=== PATIENT | male | born 1960 | race Caucasian/White ===

== ENCOUNTER 2019-07-10 21:52 | Emergency (ER) | payer BC ==
[2019-07-10] MEDS ORDERED: Cephalexin 500 MG Cap PO ONE (21:53)
[2019-07-10] MEDS ORDERED: Lidocaine 2% 20 ML MDV ONE (22:01)
[2019-07-10] MEDS ORDERED: Lidocaine 2% 20 ML MDV INJECT ONE (22:10)
[2019-07-10] MEDS ORDERED: Bacitracin/Neomycin/Polymyxin B Oint 0.9 GM U/D Packet TOP ONE (22:29)
--- NOTE | 2019-07-10 22:35 | EDM.PDOC ---
ED HPI GENERAL MEDICAL PROBLEM - General Chief Complaint: Laceration Stated Complaint: "He seems so out of it" Time Seen by Provider: 07/10/19 21:55 Source of Information: Reports: Patient, Family History Limitations: Reports: No Limitations - History of Present Illness INITIAL COMMENTS - FREE TEXT/NARRATIVE: in with c/o 3cm laceration to right hand distal end of the 2nd digit, caught in a door, bleeding is controlled, FROM to the digit with normal sensation, cap refill < 2sec, pt has been drinking a lot of alcohol tonight Onset: Today Duration: Hour(s): (1600) Location: Reports: Upper Extremity, Right Quality: Reports: Ache Severity: Mild Improves with: Reports: None Worsens with: Reports: None Context: Reports: Trauma Associated Symptoms: Reports: No Other Symptoms Treatments [employer]: Reports: Other (see below) (none) - Related Data Allergies Allergy/AdvReac Type Severity Reaction Status Date / Time No Known Allergies Allergy Verified 10/08/15 13:46 Home Meds: Home Meds Buprenorphine [Subutex] 8 mg SL DAILY 10/08/15 [History] cephALEXin [Keflex] 500 mg PO Q8H 10 Days #30 cap 07/10/19 [Rx] Past Medical History Musculoskeletal History: Reports: Fracture Other Musculoskeletal History: Right knee replacement and left hip replacement in 2019 Hematologic History: Reports: Blood Transfusion(s) - Past Surgical History HEENT Surgical History: Reports: Tonsillectomy Musculoskeletal Surgical History: Reports: ORIF Social & Family History - Tobacco Use Years of Tobacco use: 30 - Recreational Drug Use Recreational Drug Use: No ED ROS GENERAL - Review of Systems Review Of Systems: See Below Constitutional: Reports: No Symptoms Respiratory: Reports: No Symptoms Cardiovascular: Reports: No Symptoms GI/Abdominal: Reports: No Symptoms Musculoskeletal: Reports: Other (pain to distal right hand 2nd digit). Denies: Neck Pain, Shoulder Pain, Joint Swelling Skin: Reports: Wound (3cm laceration) Neurological: Reports: No Symptoms. Denies: Numbness, Tingling, Weakness Psychiatric: Reports: No Symptoms ED EXAM, SKIN/RASH Exam: See Below Exam Limited By: No Limitations General Appearance: Alert, No Apparent Distress Throat/Mouth: Normal Inspection, Normal Voice, No Airway Compromise Head: Atraumatic, Normocephalic Neck: Normal Inspection, Supple, Non-Tender, Full Range of Motion Respiratory/Chest: No Respiratory Distress, Lungs Clear, Normal Breath Sounds Cardiovascular: Normal Peripheral Pulses, Regular Rate, Rhythm, No Murmur Peripheral Pulses: 2+: Radial (R) Back Exam: Normal Inspection, Full Range of Motion Extremities: Normal Range of Motion, Normal Capillary Refill, Other (laceration as above) Neurological: Alert, Oriented, Normal Cognition, Normal Gait, No Motor/Sensory Deficits Psychiatric: Normal Affect, Normal Mood Skin: Warm, Dry, Normal Color. No: Intact Location, Skin: Upper Extremity, Right (as above) Associated features: Tenderness. No: Swelling ED SKIN PROCEDURES - Laceration/Wound Repair Right Upper Anterior Midline Distal Digit - 2nd (Index) Appearance: Linear, Clean Distal NVT: Neuro & Vascular Intact, No Tendon Injury Anesthetic Type: Local Local Anesthesia - Lidocaine (Xylocaine): 2% Plain Local Anesthetic Volume: 4cc Skin Prep: Saline (and wound fur dry cleaner) Exploration/Debridement/Repair: Wound Explored, In a Bloodless Field, No Foreign Material Found Closed with: Sutures Lac/Wound length In cm: 3 Suture Size: 5-0 # of Sutures: 7 Suture Type: Nylon Sterile Dressing Applied: Provider Tetanus Status Addressed: Yes (is UTD) Complications: No Progress/Comments: wound then cleaned with NS and a bacitracin oint dressing applied Course - Orders/Labs/Meds Orders: Active Orders 24 hr Category Date Time Status Bacitracin/Neomycin/Polymyxin [Triple Antibiotic Oint] Med 07/10/19 22:29 Once 1 each TOP ONETIME ONE Medication Orders Neomycin/Polymyxin/Bacitracin (Triple Antibiotic Oint) 1 each TOP ONETIME ONE Stop: 07/10/19 22:30 Meds: Medications Generic Name Dose Route Start Last Admin Trade Name Freq PRN Reason Stop Dose Admin Neomycin/Polymyxin/Bacitracin 1 each 07/10/19 22:29 Triple Antibiotic Oint TOP 07/10/19 22:30 ONETIME ONE Discontinued Medications Generic Name Dose Route Start Last Admin Trade Name Freq PRN Reason Stop Dose Admin Lidocaine HCl 20 ml 07/10/19 22:10 Xylocaine 2% INJECT 07/10/19 22:11 ONETIME ONE Lidocaine HCl Confirm 07/10/19 22:01 Xylocaine 2% Administered 07/10/19 22:02 Dose 20 ml .ROUTE .STK-MED ONE Departure - Departure Time of Disposition: 22:36 Disposition: Home, Self-Care 01 Condition: Good Clinical Impression: Laceration of right index finger w/o foreign body w/o damage to nail - Discharge Information *PRESCRIPTION DRUG MONITORING PROGRAM REVIEWED*: Not Applicable *COPY OF PRESCRIPTION DRUG MONITORING REPORT IN PATIENT JOHN: Not Applicable Prescriptions: cephALEXin [Keflex] 500 mg PO Q8H 10 Days #30 cap Instructions: Laceration Care, Adult, Sutured Wound Care Additional Instructions: recheck wound this week keep the wound clean and dry apply a thin coat of antibiotic ointment 3 x a day leave open to air (uncovered) as much as possible keflex 500mg 3 x a day for 10 days - Problem List & Annotations (1) Laceration of right index finger w/o foreign body w/o damage to nail SNOMED Code(s): 235778545 Code(s): S61.210A - LACERATION W/O FB OF R IDX FNGR W/O DAMAGE TO NAIL, INIT Status: Acute Priority: Medium Qualifiers: Encounter type: initial encounter Qualified Code(s): S61.210A - Laceration without foreign body of right index finger without damage to nail, initial encounter - Problem List Review Problem List Initiated/Reviewed/Updated: Yes - My Orders Last 24 Hours: My Active Orders 07/10/19 22:29 Bacitracin/Neomycin/Polymyxin [Triple Antibiotic Oint] 1 each TOP ONETIME ONE - Assessment/Plan Last 24 Hours: My Active Orders 07/10/19 22:29 Bacitracin/Neomycin/Polymyxin [Triple Antibiotic Oint] 1 each TOP ONETIME ONE Plan: as above
[2019-07-10] MEDS ORDERED: Take Home: Cephalexin 500 MG Cap, 4 Cap Pack PO ONE (22:39)
[2019-07-10 23:28] VITALS: BP 139/83; PULSE 120
== END 2019-07-10 22:50 | disposition home or self-care (01) ==
LOC: CC.ED 21:52
DX: S61.210A Laceration without foreign body of right index finger without damage to nail, initial encounter (principal); W23.0XXA Caught, crushed, jammed, or pinched between moving objects, initial encounter
CPT/HCPCS: 12002; 99282-25; A9270-GY; J2001

== ENCOUNTER 2024-07-27 17:57 | Emergency (ER) | payer BC ==
[2024-07-27 18:04] VITALS: BP 156/84; PULSE 81
[2024-07-27] MEDS: Ondansetron 4 MG/2 ML SDV IVPUSH PRN ×2 (18:32→19:26)
[2024-07-27] MEDS: Sodium Chloride 0.9% 1,000 ML IV ONE (18:33)
[2024-07-27 18:38] LABS: BASOPHILS ABSOLUTE AUTO 0.04 10^3/uL (0.00-0.50); BASOPHILS PERCENT AUTO 0.4 % (0-1); EOSINOPHILS ABSOLUTE AUTO 0.07 10^3/uL (0.00-1.50); EOSINOPHILS PERCENT AUTO 0.7 % (0-6); HEMATOCRIT 45.9 % (42.0-52.0); HEMOGLOBIN 15.6 g/dL (14.0-18.0); IMMATURE GRAN ABSOLUTE AUTO 0.02 10^3/uL (0.00-0.49); IMMATURE GRAN PERCENT AUTO 0.2 % (0.0-4.9); LYMPHOCYTES ABSOLUTE AUTO 2.04 10^3/uL (0.60-5.00); LYMPHOCYTES PERCENT AUTO 19.2 % (24-44); MEAN CORPUSCULAR HEMOGLOBIN 29.7 pg (27.0-32.0); MEAN CORPUSCULAR VOLUME 87.4 fL (83.0-97.0); MONOCYTES ABSOLUTE AUTO 0.41 10^3/uL (0.00-1.50); MONOCYTES PERCENT AUTO 3.8 % (0-10); NEUTROPHILS ABSOLUTE AUTO 8.07 x10^3/uL (1.80-8.00); NEUTROPHILS PERCENT AUTO 75.7 % (41-71); PLATELET COUNT,PLT 235 10^3/uL (150-400); RED BLOOD CELL COUNT 5.25 x10^6/uL (4.50-6.00); WHITE BLOOD CELL COUNT,WBC 10.7 10^3/uL (4.0-11.0)
[2024-07-27 18:51] LABS: ALBUMIN 4.6 g/dL (3.4-5.0); BILIRUBIN TOTAL 1.1 mg/dL (0.0-1.0); CREATININE 0.9 mg/dL (0.7-1.3); EST CRCL DRUG DOSING (CG) 86.19 mL/min; MAGNESIUM 1.9 mg/dL (1.8-2.4); POTASSIUM,K 3.6 mEq/L (3.5-5.0); PROTEIN TOTAL,TP 7.9 g/dL (6.4-8.2)
[2024-07-27] MEDS: Take Home: Ondansetron 4 MG Tab.DIS, 2 Tab Pack PO ONE (19:29)
== END 2024-07-27 19:50 | disposition home or self-care (01) ==
LOC: CC.ED 17:57
DX: R11.2 Nausea with vomiting, unspecified (principal); Z79.899 Other long term (current) drug therapy
CPT/HCPCS: 36415; 80053; 83690; 83735; 85025; 96361; 96374; 96376; 99284; 99284-25; A9270-GY; J2405; J7030